=== PATIENT | female | born 1950 | race African-American/Black ===

== ENCOUNTER 2016-08-19 00:06 | Emergency (ER) | payer OTHER ==
[2016-08-19 00:13] VITALS: BP 140/79; BMI 27.3
--- NOTE | 2016-08-19 01:00 | DR.GENAD ---
HPI - PCP Primary Care Physician: Rodo - Complaint/Symptoms Chief Complaint:: "I have been throwing up and feeling really dizzy. I have also had loose stools. This has started ever since I started Metformin about 3 or 4 weeks ago." - Nurses notes reviewed Nurses Notes Review: Yes - Source History Provided: Patient - Mode of Arrival Mode of Arrival: Wheelchair - Timing Onset of Chief Complaint: 07/29/16 PMH - PMH Past Medical History: Yes Past Medical History: Diabetes, Hypertension Past Surgical History: Yes Surgical History: [employer] Surgery, Ortho Surgery Past Surgical History Comment: Ankle - Family History History of Family Medical Conditions: Yes Family Medical History: Diabetes Mellitus, Hypertension - Social History Does patient currently use any type of tobacco product: No Have you used tobacco products in the last 12 months: No Type of Tobacco Use: None Does any household member use tobacco: No Alcohol Use: None Do you use any recreational Drugs:: No Lives With: Family Lives Where: Home - infectious screening In the last 2 months have you had wt loss of >10#?: NO Have you had fever, night sweats or hemotysis?: No Have you traveled outside the country in the last 6 months?: No Isolation: Standard PE - Vital Signs Vitals: Temperature 97.7 F Pulse Rate 87 Respiratory Rate 18 Blood Pressure 140/79 O2 Sat by Pulse Oximetry 98 ROR - Labs Reviewed Result Diagrams: 08/19/16 01:08 08/19/16 01:08 Laboratory: WBC 15.1 X10^3/uL (3.6-10.0) H 08/19/16 01:08 RBC 4.51 X10^6/uL (3.5-5.4) 08/19/16 01:08 Hgb 13.5 g/dL (12.0-16.0) 08/19/16 01:08 Hct 38.8 % (36.0-47.0) 08/19/16 01:08 MCV 86.1 fL (80.0-100.0) 08/19/16 01:08 MCH 29.8 pg (27.0-34.0) 08/19/16 01:08 MCHC 34.7 g/dL (33.0-35.0) 08/19/16 01:08 RDW 13.4 % (11.6-16.5) 08/19/16 01:08 Plt Count 326 X10^3/uL (150.0-450.0) 08/19/16 01:08 MPV 7.6 fL (7.4-11.0) 08/19/16 01:08 Neut % 78.2 % (42.0-75.0) H 08/19/16 01:08 Lymph % 13.8 % (21.0-51.0) L 08/19/16 01:08 [place] % 6.9 % (0.0-13.0) 08/19/16 01:08 Eos % 0.8 % (0.9-2.9) L 08/19/16 01:08 Baso % 0.3 % (0.2-1.0) 08/19/16 01:08 Neut # 11.8 x10^3/uL (2.2-4.8) H 08/19/16 01:08 Lymph # 2.1 X10^3/uL (1.3-2.9) 08/19/16 01:08 [place] # 1.0 x10^3/uL (0.3-0.8) H 08/19/16 01:08 Eos # 0.1 x10^3/uL (0.0-0.2) 08/19/16 01:08 Baso # 0.1 X10^3/uL (0.0-0.1) 08/19/16 01:08 Absolute Nucleated RBC 0.0 /100WBC 08/19/16 01:08 Sodium 142 mmol/L (136-145) 08/19/16 01:08 Corrected Sodium TNP 08/19/16 01:08 Potassium 4.6 mmol/L (3.5-5.1) 08/19/16 01:08 Chloride 102 mmol/L (98-107) 08/19/16 01:08 Carbon Dioxide 30.1 mmol/L (21-32) 08/19/16 01:08 BUN 18 mg/dL (7-18) 08/19/16 01:08 Creatinine 0.84 mg/dL (0.55-1.02) 08/19/16 01:08 Est GFR (MDRD) Af Amer > 60 (>60) 08/19/16 01:08 Est GFR (MDRD) Non-Af > 60 (>60) 08/19/16 01:08 Glucose 103 mg/dL (65-99) H 08/19/16 01:08 Calcium 9.7 mg/dL (8.5-10.1) 08/19/16 01:08 Corrected Calcium TNP 08/19/16 01:08 Total Bilirubin 0.60 mg/dL (0.2-1.0) 08/19/16 01:08 AST 17 Units/L (15-37) 08/19/16 01:08 ALT 22 Units/L (12-78) 08/19/16 01:08 Alkaline Phosphatase 106 Units/L (46-116) 08/19/16 01:08 Creatine Kinase 65 Units/L (26-192) 08/19/16 01:08 CK-MB (CK-2) < 1.0 ng/mL (0-4.0) 08/19/16 01:08 CK/CKMB % Calc 1.5 % (<4) 08/19/16 01:08 Troponin I < 0.02 ng/mL (0-1.5) 08/19/16 01:08 Total Protein 8.3 g/dL (6.4-8.2) H 08/19/16 01:08 Albumin 3.9 g/dL (3.4-5.0) 08/19/16 01:08 Globulin 4.4 g/dL (2.5-4.5) 08/19/16 01:08 Albumin/Globulin Ratio 0.9 Ratio (1.1-2.1) L 08/19/16 01:08 - Diagnosis Discharge Problem: Dizziness, Vertigo - Discharge Plan Condition: Stable Prescriptions: Meclizine HCl 25 mg PO TID PRN #20 tab PRN Reason: Dizziness - Follow ups/Referrals Follow ups/Referrals: RAMON CIFUENTES [Primary Care Provider] - 3 days - Instructions Instructions: Dizziness, [id number], Vertigo, [id number] Additional Instructions: RETURN TO ED IF WORSE.
[2016-08-19] MEDS ORDERED: ANTIVERT TAB 25 MG ONE (01:10)
[2016-08-19] MEDS: ANTIVERT TAB 25 MG PO ONE (01:13)
[2016-08-19 01:17] LABS: BASOPHILS # (AUTO) 0.1 X10^3/uL (0.0-0.1); BASOPHILS % (AUTO) 0.3 % (0.2-1.0); EOSINOPHILS # (AUTO) 0.1 x10^3/uL (0.0-0.2); EOSINOPHILS % (AUTO) 0.8 % (0.9-2.9); HEMATOCRIT 38.8 % (36.0-47.0); HEMOGLOBIN 13.5 g/dL (12.0-16.0); LYMPHOCYTES # (AUTO) 2.1 X10^3/uL (1.3-2.9); LYMPHOCYTES % (AUTO) 13.8 % (21.0-51.0); MEAN CORPUSCULAR HEMOGLOBIN 29.8 pg (27.0-34.0); MEAN CORPUSCULAR HGB CONC 34.7 g/dL (33.0-35.0); MEAN CORPUSCULAR VOLUME 86.1 fL (80.0-100.0); MEAN PLATELET VOLUME 7.6 fL (7.4-11.0); MONOCYTES % (AUTO) 6.9 % (0.0-13.0); NEUTROPHILS # (AUTO) 11.8 x10^3/uL (2.2-4.8); NEUTROPHILS % (AUTO) 78.2 % (42.0-75.0); PLATELET COUNT 326 X10^3/uL (150.0-450.0); RED BLOOD COUNT 4.51 X10^6/uL (3.5-5.4); RED CELL DISTRIBUTION WIDTH 13.4 % (11.6-16.5); WHITE BLOOD COUNT 15.1 X10^3/uL (3.6-10.0)
[2016-08-19 01:37] LABS: BLOOD UREA NITROGEN 18 mg/dL (7-18); CALCIUM 9.7 mg/dL (8.5-10.1); CARBON DIOXIDE 30.1 mmol/L (21-32); CHLORIDE 102 mmol/L (98-107); CREATININE 0.84 mg/dL (0.55-1.02); GLUCOSE 103 mg/dL (65-99); SODIUM 142 mmol/L (136-145); TROPONIN I < 0.02 ng/mL (0-1.5); eGFR BLACK RACES > 60 (>60); eGFR NON BLACK RACES > 60 (>60)
--- NOTE | 2016-08-19 01:51 | CT ---
CT head without contrast Indication: Dizziness Technique: Axial images from the skullbase to the vertex without contrast. Coronal and sagittal refo rmats provided. Do a findings: There is no acute intracranial hemorrhage, mass or mass effect. No ex tra-axial fluid collections seen. There is atrophy and microangiopathy with periventricular white ma tter hypoattenuation noted. No large area of hypoattenuation to suggest acute infarct convincingly d emonstrated. Bone windows shows no osseous abnormality. Paranasal sinuses and mastoid air cells are clear. Impression: 1. Microangiopathic changes. 2. No acute intracranial hemorrhage. 3. If there is high suspicion for acute infarction and it would make a clinical difference to diagno se stroke now, MRI is most sensitive and specific absent contraindication. Reported By:
[2016-08-19 02:02] LABS: ALANINE AMINOTRANSFERASE 22 Units/L (12-78); ALBUMIN 3.9 g/dL (3.4-5.0); ALKALINE PHOSPHATASE 106 Units/L (46-116); ASPARTATE AMINO TRANSFERASE 17 Units/L (15-37); CKMB % 1.5 % (<4); CREATINE KINASE 65 Units/L (26-192); CREATINE KINASE MB < 1.0 ng/mL (0-4.0); TOTAL PROTEIN 8.3 g/dL (6.4-8.2)
== END 2016-08-19 02:35 | disposition home or self-care (01) ==
LOC: ER 00:06
DX: R42 Dizziness and giddiness (principal)
CPT/HCPCS: 36415; 70450; 80053; 82550; 82553; 84484; 85025; 93005; 93010; 99283